=== PATIENT | female | born 1945 | race Two or more races ===

== ENCOUNTER 2017-08-27 08:01 | Emergency (ER) | payer OTHER ==
[~2017-08-27] VITALS: Ht 157.5 cm; Wt 100.7 kg
[~2017-08-27 08:01] MED LIST: ADULT ASPIRIN81 MG; ADVAIR 2501 DISK W/1 IH; ALBUTEROL0.63 MG/3; ALBUTEROL17 GM IH; ATACAND HCT 31 UDTA1 PO; ATACAND32 MG PO; AVALIDE 150/12.1 TAB; CRESTOR20 MG; DESPEC-DM TABL1 EAC1 PO; DICLOFENAC SODI50 MG PO; HUMALOG MIX 50/53 ML; HUMALOG MIX 75/10 ML SQ; HUMALOG MIX 75/23 ML SQ; HUMALOG100 U/ML; HYZAAR 100/25 T1 TAB; IMDUR30 MG; INTEGRA PLUS C1 EACH PO; ISOSORBIDE DINI30 MG; LANTUS SOLOSTAR3 ML; LANTUS100 U/ML; LASIX20 MG; LEVAQUIN750 MG PO; MEDROL2 MG PO; METFORMIN HCL1000 MG PO; MUCINEX DM1 TAB.SR . PO; MUCINEX FAST-M1 EACH PO; NAPROXEN500 M1 PO; NORFLEX100MG PO; NORVASC5 MG; NOVOLOG100 UNIT/1 SQ; ORPH100T PO; OSEL75CA PO; OXYC1TAB9 PO; PROTONIX40 MG PO; PROVENTIL3 ML/2.5 M IH; REGLAN5 MG/5 ML PO; SYMBICORT 16010.2 GM; TESSALON PERLE100 MG PO; TUSSI PRES-B L120 M1 PO; XARELTO10 MG PO; ZANTAC150 M3 PO; ZITHROMAX TRI-500 MG PO; ZYRTEC10 MG PO
[2017-08-27] MEDS ORDERED: HUMALOG100 UNIT/1 (08:28)
[2017-08-27] MEDS ORDERED: IPRAT-ALBUT 0.5-3 ML IH (18:17)
[2017-08-27] MEDS ORDERED: ZITHROMAX500 MG PO (18:17)
[2017-08-27] MEDS ORDERED: MUCINEX DM ER1 EAC1 PO (18:17)
[2017-08-27] MEDS ORDERED: BUDESONIDE0.5 MG/2 M IH (18:17)
== END 2017-08-27 18:26 | disposition home or self-care (01) ==
LOC: ER 08:01
DX: J45.901 Unspecified asthma with (acute) exacerbation (principal); J20.9 Acute bronchitis, unspecified; J11.1 Influenza due to unidentified influenza virus with other respiratory manifestations

== ENCOUNTER 2017-08-28 19:03 | Emergency (ER) | payer OTHER ==
[~2017-08-28] VITALS: Ht 157.5 cm; Wt 100.7 kg
[~2017-08-28 19:03] MED LIST changes: +BUDESONIDE0.5 MG/2 M IH; +HUMALOG100 UNIT/1; +IPRAT-ALBUT 0.5-3 ML IH; +MUCINEX DM ER1 EAC1 PO; +ZITHROMAX500 MG PO
== END 2017-08-28 20:40 | disposition home or self-care (01) ==
LOC: ER 19:03
DX: J40 Bronchitis, not specified as acute or chronic (principal)

== ENCOUNTER → 2017-09-02 | Emergency (ER) | payer OTHER ==
[~2017-09-02] VITALS: Ht 157.5 cm; Wt 99.8 kg
== END | disposition home or self-care (01) ==
LOC: ER 08:14
DX: J45.998 Other asthma (principal); J11.1 Influenza due to unidentified influenza virus with other respiratory manifestations

== ENCOUNTER 2017-09-24 09:55 | Emergency (ER) | payer OTHER ==
[~2017-09-24] VITALS: Ht 157.5 cm; Wt 98.4 kg
== END 2017-09-24 14:03 | disposition home or self-care (01) ==
LOC: ER 09:55
DX: B34.9 Viral infection, unspecified (principal); J11.1 Influenza due to unidentified influenza virus with other respiratory manifestations

== ENCOUNTER 2017-10-25 11:03 | Emergency (ER) | payer OTHER ==
[~2017-10-25] VITALS: Ht 157.5 cm; Wt 101.2 kg
[2017-10-25] MEDS ORDERED: PEPCID40 MG PO (15:38)
[2017-10-25] MEDS ORDERED: NORFLEX100MG PO (15:38)
[2017-10-25] MEDS ORDERED: ACIDOPHILUS1 EAC3 PO (15:38)
[2017-10-25] MEDS ORDERED: DICLOFENAC SODI50 MG PO (15:38)
== END 2017-10-25 15:55 | disposition home or self-care (01) ==
LOC: ER 11:03
DX: K29.00 Acute gastritis without bleeding (principal); M54.5 Low back pain

== ENCOUNTER → 2017-11-24 | Emergency (ER) | payer OTHER ==
[~2017-11-24] VITALS: Ht 157.5 cm; Wt 100.7 kg
[~2017-11-24] MED LIST changes: +ACIDOPHILUS1 EAC3 PO; +PEPCID40 MG PO
== END | disposition home or self-care (01) ==
LOC: ER 08:16
DX: K21.9 Gastro-esophageal reflux disease without esophagitis (principal)

== ENCOUNTER 2018-01-19 07:46 | Emergency (ER) | payer OTHER ==
[~2018-01-19] VITALS: Ht 157.5 cm; Wt 10.0 kg
== END 2018-01-19 13:16 | disposition home or self-care (01) ==
LOC: ER 07:46
DX: K21.9 Gastro-esophageal reflux disease without esophagitis (principal); K29.60 Other gastritis without bleeding

== ENCOUNTER 2018-02-12 07:08 | Emergency (ER) | payer OTHER ==
[~2018-02-12] VITALS: Ht 160 cm; Wt 100.7 kg
[2018-02-13] MEDS ORDERED: PROMETH-CODEIN 65 ML PO (06:42)
== END 2018-02-13 07:33 | disposition home or self-care (01) ==
LOC: ER 07:08
DX: J45.998 Other asthma (principal); J06.9 Acute upper respiratory infection, unspecified; J20.9 Acute bronchitis, unspecified; R06.02 Shortness of breath

== ENCOUNTER → 2018-03-03 | Emergency (ER) | payer OTHER ==
[~2018-03-03] VITALS: Ht 152.4 cm; Wt 100.7 kg
[~2018-03-03] MED LIST changes: +PROMETH-CODEIN 65 ML PO
== END | disposition home or self-care (01) ==
LOC: ER 10:48
DX: J45.998 Other asthma (principal); H66.91 Otitis media, unspecified, right ear

== ENCOUNTER 2018-03-29 12:41 | Emergency (ER) | payer OTHER ==
[~2018-03-29] VITALS: Ht 157.5 cm; Wt 99.8 kg
== END 2018-03-29 15:30 | disposition home or self-care (01) ==
LOC: ER 12:41
DX: M51.26 Other intervertebral disc displacement, lumbar region (principal); M54.5 Low back pain

== ENCOUNTER 2018-04-19 08:17 | Emergency (ER) | payer OTHER ==
[~2018-04-19] VITALS: Ht 157.5 cm; Wt 104.3 kg
[2018-04-19] MEDS ORDERED: ADVAIR HFA 115/12 GM (08:31)
[2018-04-19] MEDS ORDERED: ALBUTEROL1.25 MG/3 (08:31)
[2018-04-19] MEDS ORDERED: THEOPHYLLINE400 MG PO (08:32)
== END 2018-04-19 15:07 | disposition home or self-care (01) ==
LOC: ER 08:17
DX: M54.5 Low back pain (principal); M54.2 Cervicalgia

== ENCOUNTER 2018-05-06 08:01 | Emergency (ER) | payer OTHER ==
[~2018-05-06] VITALS: Ht 154.9 cm; Wt 100.7 kg
[~2018-05-06 08:01] MED LIST changes: +ADVAIR HFA 115/12 GM; +ALBUTEROL1.25 MG/3; +THEOPHYLLINE400 MG PO
== END 2018-05-06 16:54 | disposition home or self-care (01) ==
LOC: ER 08:01
DX: J45.901 Unspecified asthma with (acute) exacerbation (principal); J11.1 Influenza due to unidentified influenza virus with other respiratory manifestations

== ENCOUNTER 2018-06-23 10:19 | Emergency (ER) | payer OTHER ==
[~2018-06-23] VITALS: Ht 157.5 cm; Wt 963.0 kg
== END 2018-06-23 16:13 | disposition home or self-care (01) ==
LOC: ER 10:19
DX: R06.02 Shortness of breath (principal)

== ENCOUNTER → 2019-03-30 | Emergency (ER) | payer OTHER ==
[~2019-03-30] VITALS: Ht 162.6 cm; Wt 104.3 kg
== END | disposition home or self-care (01) ==
LOC: ER 12:11
DX: R06.02 Shortness of breath (principal)

== ENCOUNTER 2020-08-10 10:39 | Emergency (ER) | payer OTHER ==
[~2020-08-10] VITALS: Ht 157.5 cm; Wt 100.7 kg
[2020-08-10] MEDS ORDERED: KETO10TA2 PO (12:31)
[2020-08-10] MEDS ORDERED: NORFLEX100MG PO (12:31)
== END 2020-08-10 12:38 | disposition home or self-care (01) ==
LOC: ER 10:39
DX: M54.5 Low back pain (principal)

== ENCOUNTER 2020-08-12 07:38 | Emergency (ER) | payer OTHER ==
[~2020-08-12] VITALS: Ht 157.5 cm; Wt 100.7 kg
[~2020-08-12 07:38] MED LIST changes: +KETO10TA2 PO
[2020-08-12] MEDS ORDERED: ZITHROMAX500 MG PO (12:54)
[2020-08-12] MEDS ORDERED: TESSALON PERLE100 M1 PO (12:54)
[2020-08-12] MEDS ORDERED: DIABETIC TUSSI118 M3 PO (12:54)
== END 2020-08-12 13:01 | disposition home or self-care (01) ==
LOC: ER 07:38
DX: B34.9 Viral infection, unspecified (principal); Z03.818 Encounter for observation for suspected exposure to other biological agents ruled out

== ENCOUNTER 2020-08-13 07:51 | Emergency (ER) | payer OTHER ==
[~2020-08-13] VITALS: Ht 157.5 cm; Wt 91.6 kg
[~2020-08-13 07:51] MED LIST changes: +DIABETIC TUSSI118 M3 PO; +TESSALON PERLE100 M1 PO
[2020-08-14] MEDS ORDERED: ZYNCOF 20-400120 ML PO (08:02)
== END 2020-08-14 08:23 | disposition home or self-care (01) ==
LOC: ER 07:51
DX: J45.998 Other asthma (principal); B34.9 Viral infection, unspecified; Z03.818 Encounter for observation for suspected exposure to other biological agents ruled out

== ENCOUNTER 2020-08-27 10:06 | Emergency (ER) | payer OTHER ==
[~2020-08-27] VITALS: Ht 154.9 cm; Wt 100.7 kg
[~2020-08-27 10:06] MED LIST changes: +ZYNCOF 20-400120 ML PO
[2020-08-27] MEDS ORDERED: CARAFATE1 GM PO (12:43)
[2020-08-27] MEDS ORDERED: PEPCID AC20 MG PO (12:43)
== END 2020-08-27 12:48 | disposition home or self-care (01) ==
LOC: ER 10:06
DX: K21.9 Gastro-esophageal reflux disease without esophagitis (principal); R10.13 Epigastric pain; Z03.818 Encounter for observation for suspected exposure to other biological agents ruled out

== ENCOUNTER 2020-11-06 08:08 | Emergency (ER) | payer OTHER ==
[~2020-11-06] VITALS: Ht 157.5 cm; Wt 98.9 kg
[~2020-11-06 08:08] MED LIST changes: +CARAFATE1 GM PO; +PEPCID AC20 MG PO
[2020-11-06] MEDS ORDERED: METFORMIN HCL1000 M3 (08:23)
[2020-11-06] MEDS ORDERED: KETO10TA2 PO (12:19)
[2020-11-06] MEDS ORDERED: NORFLEX100MG PO (12:19)
[2020-11-06] MEDS ORDERED: TESSALON PERLE100 M1 PO (12:25)
[2020-11-06] MEDS ORDERED: ZITHROMAX500 MG PO (12:25)
== END 2020-11-06 12:29 | disposition home or self-care (01) ==
LOC: ER 08:08
DX: M54.5 Low back pain (principal); M54.2 Cervicalgia; R05 Cough; Z03.818 Encounter for observation for suspected exposure to other biological agents ruled out

== ENCOUNTER 2020-11-10 07:50 | Emergency (ER) | payer OTHER ==
[~2020-11-10] VITALS: Ht 152.4 cm; Wt 98.9 kg
[~2020-11-10 07:50] MED LIST changes: +METFORMIN HCL1000 M3
[2020-11-10] MEDS ORDERED: MONTELUKAST SOD10 MG (08:14)
[2020-11-10] MEDS ORDERED: THEOPHYLLINE400 MG (08:14)
[2020-11-10] MEDS ORDERED: PEPCID AC20 MG PO (12:39)
[2020-11-10] MEDS ORDERED: LEVSIN/SL0.125 MG SL (12:39)
== END 2020-11-10 13:03 | disposition home or self-care (01) ==
LOC: ER 07:50
DX: K29.00 Acute gastritis without bleeding (principal); R10.13 Epigastric pain

== ENCOUNTER 2020-11-15 11:25 | Emergency (ER) | payer OTHER ==
[~2020-11-15] VITALS: Ht 157.5 cm; Wt 98.9 kg
[~2020-11-15 11:25] MED LIST changes: +LEVSIN/SL0.125 MG SL; +MONTELUKAST SOD10 MG; +THEOPHYLLINE400 MG
== END 2020-11-15 16:14 | disposition home or self-care (01) ==
LOC: ER 11:25
DX: J45.998 Other asthma (principal); E11.9 Type 2 diabetes mellitus without complications; I10 Essential (primary) hypertension

== ENCOUNTER 2020-11-18 09:09 | Emergency (ER) | payer OTHER ==
[~2020-11-18] VITALS: Ht 157.5 cm; Wt 98.9 kg
[2020-11-18] MEDS ORDERED: TESSALON PERLE100 M1 (12:19)
== END 2020-11-18 14:48 | disposition home or self-care (01) ==
LOC: ER 09:09
DX: R06.02 Shortness of breath (principal)

== ENCOUNTER 2022-02-16 06:25 | Emergency (ER) | payer OTHER ==
[~2022-02-16] VITALS: Ht 157.5 cm; Wt 98.9 kg
[~2022-02-16 06:25] MED LIST changes: +TESSALON PERLE100 M1
== END 2022-02-16 13:14 | disposition home or self-care (01) ==
LOC: ER 06:25
DX: J45.909 Unspecified asthma, uncomplicated (principal); E11.9 Type 2 diabetes mellitus without complications; I10 Essential (primary) hypertension; Z79.899 Other long term (current) drug therapy; Z79.4 Long term (current) use of insulin; Z20.822 Contact with and (suspected) exposure to COVID-19; Z88.2 Allergy status to sulfonamides; Z88.1 Allergy status to other antibiotic agents; Z88.0 Allergy status to penicillin; Z88.9 Allergy status to unspecified drugs, medicaments and biological substances

== ENCOUNTER 2022-05-03 08:48 | Emergency (ER) | payer OTHER ==
[~2022-05-03] VITALS: Ht 157.5 cm; Wt 96.2 kg
== END 2022-05-03 16:25 | disposition home or self-care (01) ==
LOC: ER 08:48
DX: J45.901 Unspecified asthma with (acute) exacerbation (principal); Z91.013 Allergy to seafood; Z88.0 Allergy status to penicillin; Z88.2 Allergy status to sulfonamides; I10 Essential (primary) hypertension; E07.9 Disorder of thyroid, unspecified; E11.9 Type 2 diabetes mellitus without complications; Z79.4 Long term (current) use of insulin; Z20.822 Contact with and (suspected) exposure to COVID-19

== ENCOUNTER 2022-10-17 06:39 | Emergency (ER) | payer OTHER ==
[~2022-10-17] VITALS: Ht 157.5 cm; Wt 96.2 kg
[2022-10-17] MEDS ORDERED: ZITHROMAX500 MG PO (12:39)
[2022-10-17] MEDS ORDERED: DIABETIC TUSSI118 M3 PO (12:39)
[2022-10-17] MEDS ORDERED: CLARITIN10 M1 PO (12:39)
[2022-10-17] MEDS ORDERED: SYMBICORT 16010.2 GM IH (12:39)
== END 2022-10-17 13:02 | disposition home or self-care (01) ==
LOC: ER 06:39
DX: R05.3 Chronic cough (principal); Z88.2 Allergy status to sulfonamides; Z88.0 Allergy status to penicillin; Z20.822 Contact with and (suspected) exposure to COVID-19

== ENCOUNTER 2023-01-18 09:10 | Emergency (ER) | payer OTHER ==
[~2023-01-18] VITALS: Ht 157.5 cm; Wt 96.2 kg
[~2023-01-18 09:10] MED LIST changes: +CLARITIN10 M1 PO; +SYMBICORT 16010.2 GM IH
== END 2023-01-18 11:30 | disposition home or self-care (01) ==
LOC: ER 09:10
DX: R05.9 Cough, unspecified (principal); J45.909 Unspecified asthma, uncomplicated; I10 Essential (primary) hypertension; Z20.822 Contact with and (suspected) exposure to COVID-19; Z88.0 Allergy status to penicillin; Z88.2 Allergy status to sulfonamides; Z91.013 Allergy to seafood